=== PATIENT | female | born 1970 ===

== ENCOUNTER 2017-10-16 20:14 | Emergency (ER) | payer SELFPAY ==
[~2017-10-16] VITALS: Ht 160 cm; Wt 54.4 kg
[2017-10-16] MEDS ORDERED: KLONOPIN2 MG PO (20:31)
[2017-10-16] MEDS ORDERED: ATIVAN1 MG PO (22:32)
== END 2017-10-16 22:56 | disposition home or self-care (01) ==
LOC: EDBD 20:14 → ED 20:14
DX: F10.129 Alcohol abuse with intoxication, unspecified (principal); Y90.8 Blood alcohol level of 240 mg/100 ml or more; F41.9 Anxiety disorder, unspecified; F17.200 Nicotine dependence, unspecified, uncomplicated; Z79.899 Other long term (current) drug therapy
CPT/HCPCS: 80053; 84703; 85025; 96360; 99284; G0480; J7030

== ENCOUNTER 2017-10-17 18:10 | Emergency (ER) | payer SELFPAY ==
[~2017-10-17] VITALS: Ht 160 cm; Wt 54.4 kg
[~2017-10-17 18:10] MED LIST: ATIVAN1 MG PO; KLONOPIN2 MG PO
== END 2017-10-17 21:16 | disposition home or self-care (01) ==
LOC: ED 18:10
DX: F10.129 Alcohol abuse with intoxication, unspecified (principal); Y90.8 Blood alcohol level of 240 mg/100 ml or more; F41.9 Anxiety disorder, unspecified; F17.200 Nicotine dependence, unspecified, uncomplicated; Z79.899 Other long term (current) drug therapy
CPT/HCPCS: 80053; 85025; 96361; 96374; 99284; G0480; J2405; J7030